=== PATIENT | female | born 1945 | race Caucasian/White ===

== ENCOUNTER 2016-08-24 18:30 | Inpatient (IN) | END 2016-09-09 13:15 | DRG 560 | DX: S32.511D Fracture of superior rim of right pubis, subsequent encounter for fracture with routine healing (principal); M32.11 Endocarditis in systemic lupus erythematosus; I69.351 Hemiplegia and hemiparesis following cerebral infarction affecting right dominant side; D68.62 Lupus anticoagulant syndrome; N39.0 Urinary tract infection, site not specified; M96.840 Postprocedural hematoma of a musculoskeletal structure following a musculoskeletal system procedure; W01.0XXD Fall on same level from slipping, tripping and stumbling without subsequent striking against object, subsequent encounter; M81.0 Age-related osteoporosis without current pathological fracture; E03.9 Hypothyroidism, unspecified; I25.10 Atherosclerotic heart disease of native coronary artery without angina pectoris; G62.9 Polyneuropathy, unspecified; F06.31 Mood disorder due to known physiological condition with depressive features; K21.9 Gastro-esophageal reflux disease without esophagitis; G47.30 Sleep apnea, unspecified; G47.00 Insomnia, unspecified; I69.393 Ataxia following cerebral infarction; K64.9 Unspecified hemorrhoids; B95.2 Enterococcus as the cause of diseases classified elsewhere ==